=== PATIENT | female | born 1990 | race Caucasian/White ===

== ENCOUNTER 2016-11-17 17:03 | Outpatient (CLI) | payer OTHER ==
[~2016-11-17] VITALS: Ht 167.6 cm; Wt 88.2 kg
[~2016-11-17 17:03] MED LIST: ETONMIS VAGRING
[2016-11-17] MEDS ORDERED: DOCU-94 PO (17:24)
[2016-11-17] MEDS ORDERED: PEDICHW50 PO (17:24)
[2016-11-17] MEDS ORDERED: RANI150T3 PO (17:24)
[2016-11-17 17:27] VITALS: Ht 167.6 cm; Wt 88.2 kg
[2016-11-17] MEDS ORDERED: ACETAMINOPHEN 325 MG TAB PO PRN (17:45)
[2016-11-17 17:56] LABS: URINE APPEARANCE CLEAR (CLEAR); URINE BILIRUBIN NEG (NEG); URINE COLOR YELLOW; URINE NITRITE NEG (NEG); URINE SPECIFIC GRAVITY 1.006 (1.000-1.030); UROBILINOGEN NEG (NEG); ZZUR CULT IF INDIC CLEAN CATCH NO
[2016-11-17 18:08] LABS: BASO % 0.1 %; BASO ABS # 0.01 K/uL (0-0.2); COMPLETE YES; EOS % 0.7 %; IG% 0.3 %; LYMPH % 13.7 %; LYMPH ABS # 1.53 K/uL (1.2-3.4); MEAN CELL VOLUME 93.6 fL (80-100); MEAN CORPUSCULAR HEMOGLOBIN 31.8 pg (25-34); MEAN PLATELET VOLUME 9.7 fL (7.4-10.4); MONO % 6.5 %; NEUT % 78.7 %; PLATELET COUNT 179 K/uL (130-400); RED BLOOD COUNT 3.74 M/uL (4.2-5.4); WHITE BLOOD COUNT 11.15 K/uL (4.8-10.8)
[2016-11-17 18:14] LABS: MANUAL MICROSCOPIC REQUIRED? NO; REVIEW REQ? NO
[2016-11-17 18:35] LABS: ALT/SGPT 17 U/L (12-78); AST/SGOT 12 U/L (15-37); BLOOD UREA NITROGEN 5 mg/dl (7-18); CALCIUM 8.2 mg/dl (8.5-10.1); CARBON DIOXIDE 27 mmol/L (21-32); CHLORIDE 104 mmol/L (98-107); CREATININE 0.44 mg/dl (0.60-1.20); GLUCOSE 94 mg/dl (70-99); POTASSIUM 3.5 mmol/L (3.5-5.1); SODIUM 139 mmol/L (136-145)
[2016-11-17 18:37] LABS: ALB/GLOB RATIO 0.8 (0.9-2); ALKALINE PHOSPHATASE 99 U/L (45-117)
== END 2016-11-17 21:32 | disposition home or self-care (01) ==
LOC: C.LD 17:03 → C.OPB 17:03 → C.LD 17:08 → C.OPB 21:32
PROVIDERS: ATTEND Obstetrics & Gynecology
DX: O26.893 Other specified pregnancy related conditions, third trimester (principal); Z3A.31 31 weeks gestation of pregnancy

== ENCOUNTER 2016-12-20 17:30 | Outpatient (CLI) | payer OTHER ==
[~2016-12-20] VITALS: Ht 167.6 cm; Wt 90.0 kg
[~2016-12-20 17:30] MED LIST changes: +DOCU-94 PO; -ETONMIS VAGRING; +PEDICHW50 PO; +RANI150T3 PO
[2016-12-20] MEDS ORDERED: ACETAMINOPHEN 500 MG TAB PO STA (17:58)
[2016-12-20 18:21] LABS: BASO % 0.1 %; BASO ABS # 0.01 K/uL (0-0.2); EOS % 0.4 %; HEMATOCRIT 35.1 % (37-47); IG% 0.3 %; LYMPH % 6.6 %; LYMPH ABS # 0.67 K/uL (1.2-3.4); MEAN CELL VOLUME 94.4 fL (80-100); MEAN CORPUSCULAR HEMOGLOBIN 32.5 pg (25-34); MEAN PLATELET VOLUME 9.8 fL (7.4-10.4); MONO % 8.5 %; NEUT % 84.1 %; PLATELET COUNT 153 K/uL (130-400); RED BLOOD COUNT 3.72 M/uL (4.2-5.4); WHITE BLOOD COUNT 10.11 K/uL (4.8-10.8)
[2016-12-20 18:23] LABS: COMPLETE YES; MEAN CORPUSCULAR HGB CONC 34.5 g/dl (32-36)
[2016-12-20 18:30] LABS: PROTHROMBIN TIME (PATIENT) 10.3 SECONDS (9.0-12.0)
[2016-12-20 19:02] LABS: ALKALINE PHOSPHATASE 135 U/L (45-117); ALT/SGPT 21 U/L (12-78); AST/SGOT 18 U/L (15-37); BLOOD UREA NITROGEN 4 mg/dl (7-18); BUN/CREATININE RATIO 7.5 (10-20); CALCIUM 8.4 mg/dl (8.5-10.1); CARBON DIOXIDE 27 mmol/L (21-32); CHLORIDE 104 mmol/L (98-107); GLUCOSE 79 mg/dl (70-99); POTASSIUM 3.5 mmol/L (3.5-5.1); SODIUM 139 mmol/L (136-145); URIC ACID 2.8 mg/dl (2.6-7.2)
--- NOTE | 2016-12-20 19:36 | Progress Note ---
Progress Note 26 F P2002 at 36.3 weeks with migraine and stuffed nasal passages. No edema or swelling in hands or feet. No bleeding or any RUQ pain. Urine shows ketones and no protein, Labs all back and wnl. Last 24 Hours Test 12/20/16 18:10 White Blood Count 10.11 K/uL Red Blood Count 3.72 M/uL Hemoglobin 12.1 g/dL Hematocrit 35.1 % Mean Corpuscular Volume 94.4 fL Mean Corpuscular Hemoglobin 32.5 pg Mean Corpuscular Hemoglobin Concent 34.5 g/dl Platelet Count 153 K/uL Mean Platelet Volume 9.8 fL Neutrophils (%) (Auto) 84.1 % Lymphocytes (%) (Auto) 6.6 % Monocytes (%) (Auto) 8.5 % Eosinophils (%) (Auto) 0.4 % Basophils (%) (Auto) 0.1 % Neutrophils # (Auto) 8.50 K/uL Lymphocytes # (Auto) 0.67 K/uL Monocytes # (Auto) 0.86 K/uL Eosinophils # (Auto) 0.04 K/uL Basophils # (Auto) 0.01 K/uL RDW Standard Deviation 44.6 fL RDW Coefficient of Variation 13.0 % Immature Granulocyte % (Auto) 0.3 % Immature Granulocyte # (Auto) 0.03 K/uL Prothrombin Time 10.3 SECONDS Prothromb Time International Ratio 1.0 Activated Partial Thromboplast Time 26.3 SECONDS Partial Thromboplastin Ratio 1.0 Sodium Level 139 mmol/L Potassium Level 3.5 mmol/L Chloride Level 104 mmol/L Carbon Dioxide Level 27 mmol/L Anion Gap 8.0 mmol/L Blood Urea Nitrogen 4 mg/dl Creatinine 0.50 mg/dl Estimated GFR () > 150.0 Estimated GFR (Non- 131.7 BUN/Creatinine Ratio 7.5 Random Glucose 79 mg/dl Uric Acid 2.8 mg/dl Calcium Level 8.4 mg/dl Total Bilirubin 0.5 mg/dl Direct Bilirubin 0.1 mg/dl Aspartate Amino Transf (AST/SGOT) 18 U/L Alanine Aminotransferase (ALT/SGPT) 21 U/L Alkaline Phosphatase 135 U/L Lactate Dehydrogenase 168 U/L Total Protein 6.3 gm/dl Albumin 2.8 gm/dl will discharge home continue Tylenol and anti-histamines Follow up in office nefxt week or if any changes.
[2016-12-20 19:47] VITALS: Ht 167.6 cm; Wt 90.0 kg
[2016-12-21] MEDS ORDERED: PRENTAB26 PO (15:54)
[2016-12-21] MEDS ORDERED: ACET-1256 PO (15:54)
[2016-12-21] MEDS ORDERED: RBTUDL5 PO (15:54)
[2016-12-21] MEDS ORDERED: NF406 PO (18:15)
[2017-01-23] MEDS ORDERED: MTR600X PO (08:14)
== END 2016-12-20 19:23 | disposition home or self-care (01) ==
LOC: C.OPB 17:30 → C.LD 17:30 → C.OPB 19:23
PROVIDERS: ATTEND Obstetrics & Gynecology
DX: O99.89 Other specified diseases and conditions complicating pregnancy, childbirth and the puerperium (principal); G43.909 Migraine, unspecified, not intractable, without status migrainosus; Z3A.36 36 weeks gestation of pregnancy

== ENCOUNTER 2016-12-21 14:49 | Emergency (ER) | payer OTHER ==
[~2016-12-21] VITALS: Ht 167.6 cm; Wt 89.0 kg
[2016-12-21 14:51] VITALS: Ht 167.6 cm; Wt 89.0 kg
[2016-12-21] MEDS ORDERED: SODIUM CHLORIDE 0.9% 1000ML 1,000 ML IV STA (15:16)
[2016-12-21 15:53] LABS: HEMATOCRIT 32.3 % (37-47); MEAN CELL VOLUME 93.6 fL (80-100); MEAN CORPUSCULAR HEMOGLOBIN 32.8 pg (25-34); MEAN PLATELET VOLUME 9.9 fL (7.4-10.4); PLATELET COUNT 155 K/uL (130-400); RED BLOOD COUNT 3.45 M/uL (4.2-5.4); WHITE BLOOD COUNT 8.55 K/uL (4.8-10.8)
[2016-12-21] MEDS ORDERED: PRENTAB26 PO (15:54)
[2016-12-21] MEDS ORDERED: RBTUDL5 PO (15:54)
[2016-12-21] MEDS ORDERED: ACET-1256 PO (15:54)
[2016-12-21 16:03] LABS: PARTIAL THROMBOPLASTIN RATIO 1.1; PROTHROMBIN TIME (PATIENT) 10.7 SECONDS (9.0-12.0)
[2016-12-21 16:17] LABS: ALT/SGPT 21 U/L (12-78); BLOOD UREA NITROGEN 4 mg/dl (7-18); BUN/CREATININE RATIO 9.1 (10-20); CALCIUM 8.1 mg/dl (8.5-10.1); CARBON DIOXIDE 23 mmol/L (21-32); CHLORIDE 106 mmol/L (98-107); CREATININE 0.45 mg/dl (0.60-1.20); GLUCOSE 96 mg/dl (70-99); POTASSIUM 3.3 mmol/L (3.5-5.1); SODIUM 139 mmol/L (136-145)
[2016-12-21 16:20] LABS: ALKALINE PHOSPHATASE 136 U/L (45-117); AST/SGOT 20 U/L (15-37)
[2016-12-21 16:23] LABS: BASO % 0.1 %; BASO ABS # 0.01 K/uL (0-0.2); COMPLETE YES; EOS % 0.6 %; IG% 0.2 %; LYMPH % 10.6 %; LYMPH ABS # 0.91 K/uL (1.2-3.4); MONO % 12.4 %; NEUT % 76.1 %
[2016-12-21 17:20] LABS: INFLUENZA B PCR Neg for Influ B (NEG)
[2016-12-21 17:22] LABS: INFLUENZA A PCR POS for Influ A (NEG)
--- NOTE | 2016-12-21 17:23 | DIAGNOSTIC IMAGING REPORT ---
BILATERAL LOWER EXTREMITY VENOUS DOPPLER CLINICAL HISTORY: Leg swelling. Shortness of breath. Fever. . COMPARISON STUDY: Bilateral lower extremity venous Doppler October 25, 2016. TECHNIQUE: Sonography of the deep venous system of the bilateral lower extremities was performed. Compression and augmentation were evaluated. FINDINGS: The bilateral common femoral, superficial femoral and popliteal veins were compressible. Augmentation was normal. Flow was shown within the deep calf vessels. IMPRESSION: No evidence of deep venous thrombus within the bilateral lower extremities. Electronically signed by: Leonard Greene M.D. 12/21/2016 5:21 PM Dictated Date/Time: 12/21/2016 5:21 PM
[2016-12-21] MEDS ORDERED: OSELTAMIVIR PHOSPHATE 75 MG CAP PO STA (17:40)
--- NOTE | 2016-12-21 18:10 | DIAGNOSTIC IMAGING REPORT ---
CHEST 2 VIEWS ROUTINE CLINICAL HISTORY: Fever. Cough. 37 weeks . COMPARISON STUDY: Chest CT March 26, 2015. TECHNIQUE: The abdomen and pelvis were triple shielded due to . PA and lateral chest radiographs were obtained. FINDINGS: Lung volumes are normal. Lungs are clear. There is no evidence of pulmonary edema. Cardiac size is normal. Mediastinal contours are normal. IMPRESSION: No acute cardiopulmonary findings. Electronically signed by: Leonard Greene M.D. 12/21/2016 6:08 PM Dictated Date/Time: 12/21/2016 6:07 PM
[2016-12-21] MEDS ORDERED: NF406 PO (18:15)
[2016-12-21 19:00] VITALS: BP 124/68; PULSE 88; TEMP 36.5; O2SAT 100
--- NOTE | 2016-12-21 22:25 | EMERGENCY ROOM VISIT NOTE ---
History Report prepared by Doreenibzohra: Veda Hines Under the Supervision of: Dr. Mitch Schneider M.D. First contact with patient: 15:02 Chief Complaint: SHORTNESS OF BREATH Stated Complaint: SOB, COUGH, FEVER, CONGESTION Nursing Triage Summary: pt here with increased sob, cough and fever. pt was seen here and upstairs yesterday with no answer. History of Present Illness The patient is a 26 year old female who presents to the Emergency Room with complaints of worsening shortness of breath that started yesterday. She reports yesterday morning while at work, she started to experience sinus congestion and pressure, a productive cough and a migraine headache. She checked her heart rate and it was 103 bpm. She denies any fevers yesterday, but states she woke with a fever this morning. Her home thermometer registered 101.6 degrees, so she took Tylenol which helped provide some relief. She went back to sleep for a little bit, then awoke with a fever again so she took more Tylenol. She is currently 36 weeks with her 3rd so she called her MANAGER SHIFT's office and they referred her to the ED for further evaluation. She complains of a feeling of "soreness" in her chest when she coughs, but denies any acute chest pain. She admits to some increased bilateral swelling to her legs, but denies any current pain in her legs. The patient denies any history of preeclampsia and states her blood pressure was checked yesterday in the OB floor for monitoring and everything was found to be unremarkable. Her urine did not show any proteins. She was discharged without any treatment. She denies any increased abnormal vaginal discharge or bleeding. She denies any personal history of PE or DVT, but reports her Mother had a clotting disease that she, the patient, has been checked for, and was found to be negative. The patient is a non-smoker and denies regularly being around cigarette smokers. Source of History: patient Onset: yesterday Position: chest Timing: worsening Modifying Factors (Relieving): tylenol Associated Symptoms: + cough, + fevers, + headache, No chest pain Review of Systems See HPI for pertinent positives & negatives. A total of 10 systems reviewed and were otherwise negative. Past Medical & Surgical Medical Problems: (1) H/O migraine during Social History Smoking Status: Never Smoker Smokeless Tobacco Use: No Alcohol Use: occasionally Drug Use: none Marital Status: Housing Status: lives with family Occupation Status: employed Current/Historical Medications Scheduled Docusate Sodium (Colace), 3 CAP PO DAILY Multivit/Min/Iron/Fol Ac/Pren ( Vitamin), 1 TAB PO QPM Oseltamivir Phosphate (Tamiflu), 1 CAP PO BID Ranitidine Hcl (Zantac), 150 MG PO DAILY Scheduled PRN Acetaminophen (Tylenol), 1,000 MG PO Q8 PRN for Pain Guaifenesin (Robitussin), 10 ML PO BID PRN for Cough Allergies Coded Allergies: Penicillins (Verified Allergy, Severe, ANAPHYLAXIS, 12/21/16) Physical Exam Vital Signs Date Time Temp Pulse Resp B/P Pulse Ox O2 Delivery O2 Flow Rate FiO2 12/21/16 19:00 36.5 88 26 124/68 100 Room Air 12/21/16 18:05 91 18 112/63 97 Room Air 12/21/16 16:47 94 12/21/16 14:51 36.9 122 20 106/52 96 Room Air Physical Exam Constitutional: Vital signs reviewed. Eyes: Pupils are equal round reactive to light. Conjunctiva are noninjected. ENT: Pharynx is clear without erythema or exudate. No sinus tenderness, significant nasal congestion. Mucous membranes are moist. Neck supple without meningeal signs. Respiratory: Clear to auscultation bilaterally. Breath sounds are equal bilaterally. No rales or wheezing. Cardiovascular: Tachycardic heart rate of 103, regular rhythm. GI: Gravid abdomen, non-tender. Bowel sounds are present. Musculoskeletal: No peripheral edema. No lower extremity tenderness. Reproducible sternal tenderness on palpation. Integumentary: No cyanosis. Neurological: The patient is awake and alert. No focal deficits. Psychiatric: Normal affect. Medical Decision & Procedures ER Provider Diagnostic Interpretation: This Ultrasound was reviewed and interpreted by the radiologist and reviewed by myself. BILATERAL LOWER EXTREMITY VENOUS DOPPLER CLINICAL HISTORY: Leg swelling. Shortness of breath. Fever. . COMPARISON STUDY: Bilateral lower extremity venous Doppler October 25, 2016. TECHNIQUE: Sonography of the deep venous system of the bilateral lower extremities was performed. Compression and augmentation were evaluated. FINDINGS: The bilateral common femoral, superficial femoral and popliteal veins were compressible. Augmentation was normal. Flow was shown within the deep calf vessels. IMPRESSION: No evidence of deep venous thrombus within the bilateral lower extremities. Electronically signed by: Leonard Greene M.D. 12/21/2016 5:21 PM This X-Ray was reviewed and interpreted by myself and the radiologist. CHEST 2 VIEWS ROUTINE CLINICAL HISTORY: Fever. Cough. 37 weeks . COMPARISON STUDY: Chest CT March 26, 2015. TECHNIQUE: The abdomen and pelvis were triple shielded due to . PA and lateral chest radiographs were obtained. FINDINGS: Lung volumes are normal. Lungs are clear. There is no evidence of pulmonary edema. Cardiac size is normal. Mediastinal contours are normal. IMPRESSION: No acute cardiopulmonary findings. Electronically signed by: Leonard Greene M.D. 12/21/2016 6:08 PM Laboratory Results 12/21/16 15:35 Red Blood Count 3.45, Mean Corpuscular Volume 93.6, Mean Corpuscular Hemoglobin 32.8, Mean Corpuscular Hemoglobin Concent 35.0, Mean Platelet Volume 9.9, Neutrophils (%) (Auto) 76.1, Lymphocytes (%) (Auto) 10.6, Monocytes (%) (Auto) 12.4, Eosinophils (%) (Auto) 0.6, Basophils (%) (Auto) 0.1, Neutrophils # (Auto ) 6.50, Lymphocytes # (Auto) 0.91, Monocytes # (Auto) 1.06, Eosinophils # (Auto ) 0.05, Basophils # (Auto) 0.01 12/21/16 15:35 Test 12/21/16 15:35 12/21/16 15:46 12/21/16 16:40 White Blood Count 8.55 K/uL (4.8-10.8) Red Blood Count 3.45 M/uL (4.2-5.4) Hemoglobin 11.3 g/dL (12.0-16.0) Hematocrit 32.3 % (37-47) Mean Corpuscular Volume 93.6 fL (80-100) Mean Corpuscular Hemoglobin 32.8 pg (25-34) Mean Corpuscular Hemoglobin Concent 35.0 g/dl (32-36) Platelet Count 155 K/uL (130-400) Mean Platelet Volume 9.9 fL (7.4-10.4) Neutrophils (%) (Auto) 76.1 % Lymphocytes (%) (Auto) 10.6 % Monocytes (%) (Auto) 12.4 % Eosinophils (%) (Auto) 0.6 % Basophils (%) (Auto) 0.1 % Neutrophils # (Auto) 6.50 K/uL (1.4-6.5) Lymphocytes # (Auto) 0.91 K/uL (1.2-3.4) Monocytes # (Auto) 1.06 K/uL (0.11-0.59) Eosinophils # (Auto) 0.05 K/uL (0-0.5) Basophils # (Auto) 0.01 K/uL (0-0.2) RDW Standard Deviation 43.9 fL (36.4-46.3) RDW Coefficient of Variation 13.0 % (11.5-14.5) Immature Granulocyte % (Auto) 0.2 % Immature Granulocyte # (Auto) 0.02 K/uL (0.00-0.02) Prothrombin Time 10.7 SECONDS (9.0-12.0) Prothromb Time International Ratio 1.0 (0.9-1.1) Activated Partial Thromboplast Time 29.0 SECONDS (21.0-31.0) Partial Thromboplastin Ratio 1.1 Anion Gap 10.0 mmol/L (3-11) Est Creatinine Clear Calc Drug Dose 209.1 ml/min Estimated GFR () > 150.0 Estimated GFR (Non- 136.4 BUN/Creatinine Ratio 9.1 (10-20) Calcium Level 8.1 mg/dl (8.5-10.1) Total Bilirubin 0.5 mg/dl (0.2-1) Direct Bilirubin 0.1 mg/dl (0-0.2) Aspartate Amino Transf (AST/SGOT) 20 U/L (15-37) Alanine Aminotransferase (ALT/SGPT) 21 U/L (12-78) Alkaline Phosphatase 136 U/L (45-117) Total Protein 6.0 gm/dl (6.4-8.2) Albumin 2.5 gm/dl (3.4-5.0) Bedside D-Dimer > 450 ng/mlFEU (0-450) Bedside Troponin I 0.000 ng/ml (0-0.045) Influenza Type A (RT-PCR) POS for Influ A (NEG) Influenza Type B (RT-PCR) Neg for Influ B (NEG) Laboratory results as reviewed by me. Medications Administered Medications (Trade) Dose Ordered Sig/Toy Route Start Time Stop Time Status Last Admin Dose Admin Sodium Chloride (Nss 1000ml) 1,000 ml @ 999 mls/hr Q1H1M STAT IV 12/21/16 15:16 12/21/16 16:16 DC 12/21/16 18:03 999 MLS/HR Oseltamivir Phosphate (Tamiflu Cap) 75 mg NOW STAT PO 12/21/16 17:40 12/21/16 17:41 DC 12/21/16 18:01 75 MG ECG Indication: SOB/dyspnea Rate (beats per minute): 94 Rhythm: normal sinus (normal sinus rhythm) Findings: no acute ischemic change, no ectopy ED Course 1506: The patient was evaluated in room A10. A complete history and physical exam was performed. 1516: NSS 1000 ml @ 999 mls/hr IV. 1648: I checked the patients lab work. Her D-dimer is 1369. 1729: I reevaluated the patient. She is resting comfortably. 1732: I discussed the patients case [facility]. She is agreeable with the patient undergoing a chest X-Ray as well as treatment with Tamiflu. 1740: Tamiflu Cap 7 mg PO. 1745: I reevaluated the patient. She states she is feeling better. I let her know the results and recommendations from MANAGER SHIFT and she is in agreement. 1813: I reevaluated the patient. I discussed her X-Ray results and she states she feels well and is ready to go home. I discussed her discharge instructions and she verbalized complete understanding and agreement. Medical Decision This is a 26-year-old female who presents with fever, sinus congestion, cough and shortness of breath. Differential diagnosis includes influenza, pneumonia, bronchitis, sinusitis, pulmonary embolism. I did perform a limited focused review of portions of the patient's old chart on the electronic medical record. The patient was seen upstairs yesterday on the OB floor for a migraine headache and sinus issues. She is 36 weeks and her blood work was unremarkable yesterday. I did evaluate the patient as noted above. She is 36.4 weeks . She is presenting with flulike symptoms since yesterday. She also is tachycardic with some shortness of breath. IV access was established. The patient was placed on a continuous surveillance monitor. I did treat her with normal saline IV. I did order and personally review the patient's 12-lead EKG as described above. She does not have any signs of pneumonia. I did order and review the patient's blood work as noted in the electronic medical record. D-dimer is elevated but not significantly more elevated than would be expected in third trimester . I did order Doppler ultrasound of her lower extremities. I did review the images myself as well as the radiology report as described above. There is no evidence of DVT. Rapid flu testing is positive. I did discuss the case with obstetrics who agreed with me that the likelihood of PE is very low and that she does not warrant a CT scan of the chest. They also agree that she should be treated with Tamiflu as she is close to her delivery date. After discussion with the patient I did order a chest x-ray which did not show any signs of pneumonia. The patient was treated with Tamiflu and discharged with a prescription for Tamiflu. She will follow up closely with her doctor. Consults Time Called: 1728 Consulting Physician: Mohan Mccoy MANAGER SHIFT Returned Call: 1732 I discussed the patients case with Mohan Mccoy MANAGER SHIFT. She is agreeable with the patient undergoing a chest X-Ray as well as treatment with Tamiflu. Impression Primary Impression: Influenza A Additional Impression: Third trimester Scribe Attestation The scribe's documentation has been prepared under my direct and personally reviewed by me in its entirety. I confirm that the note above accurately reflects all work, treatment, procedures, and medical decision making performed by me. Departure Information Dispostion Home / Self-Care Prescriptions Oseltamivir Phosphate (Tamiflu) 75 Mg Cap 1 CAP PO BID for 5 Days, #9 CAP Prov: Mitch Schneider M.D. 12/21/16 Referrals Faith Dixon M.D. (PCP) Patient Instructions ED Flu, [facility] Additional Instructions You have been examined and treated today on an emergency basis only. This is not a substitute for, or an effort to provide, complete comprehensive medical care. It is impossible to recognize and treat all injuries or illnesses in a single emergency department visit. It is therefore important that you follow up closely with your physician and hospital plan administrator. Call as soon as possible for an appointment. Return for worsening symptoms or if you develop vomiting, severe headaches, worsening chest pain or any other concerning symptoms. Problem Qualifiers
== END 2016-12-21 19:10 | disposition home or self-care (01) ==
LOC: C.EDB 14:50 → C.EDA 19:10
DX: O99.513 Diseases of the respiratory system complicating pregnancy, third trimester (principal); J11.1 Influenza due to unidentified influenza virus with other respiratory manifestations; R06.02 Shortness of breath; Z3A.36 36 weeks gestation of pregnancy; Z79.899 Other long term (current) drug therapy

== ENCOUNTER 2017-01-17 03:00 | Inpatient (IN) | payer OTHER ==
[~2017-01-17] VITALS: Ht 167.6 cm; Wt 93.6 kg
[~2017-01-17 03:00] MED LIST changes: +ACET-1256 PO; -PEDICHW50 PO; +PRENTAB26 PO; +RBTUDL5 PO
[2017-01-21] MEDS ORDERED: LACTATED RINGER'S 1000ML 1,000 ML IV SCH (10:27)
[2017-01-21] MEDS ORDERED: MISOPROSTOLTAB 50 MCG TAB PO ONE ×2 (10:30→16:00)
--- NOTE | 2017-01-21 11:12 | HISTORY & PHYSICAL EXAMINATION ---
DATE OF ADMISSION: 01/21/2017 HISTORY OF PRESENT ILLNESS: The patient is a 27-year-old G3, P2, due date 01/14/2017, making her 41 weeks today. The patient is here for induction of labor for prolonged gestation. On arrival to labor and delivery, the patient has no shortness of breath, no chills, no fever. heart rate is category 1. Bedside ultrasound shows cephalic presentation. COURSE: Unremarkable. LABORATORY DATA: Blood type O positive, antibody negative, rubella immune, GBS negative. PAST MEDICAL HISTORY: 1. The patient has history of migraines. 2. Hypothyroidism. 3. Lumbar herniated disc. PAST SURGICAL HISTORY: The patient has had dental surgery. ALLERGIES: THE PATIENT IS ALLERGIC TO PENICILLIN. SOCIAL HISTORY: The patient is . Denies drug, tobacco or alcohol use. FAMILY HISTORY: Noncontributory. PHYSICAL EXAMINATION: GENERAL: Well-developed, well-nourished white female in no acute distress. HEART: S1, S2, regular rhythm and rate. LUNGS: Clear to auscultation bilaterally. ABDOMEN: Gravid. Bedside ultrasound shows cephalic presentation. PELVIC: The patient is fingertip, 50% effaced, and -2. ASSESSMENT AND PLAN: A 27-year-old G3, P2, at 41 weeks' gestation, here for induction of labor for prolonged gestation. The patient has been admitted, induction will be started. [facility] [place]
[2017-01-21 11:19] LABS: HEMATOCRIT 35.5 % (37-47); MEAN CELL VOLUME 92.4 fL (80-100); MEAN CORPUSCULAR HGB CONC 34.6 g/dl (32-36); MEAN PLATELET VOLUME 9.9 fL (7.4-10.4); PLATELET COUNT 183 K/uL (130-400); RED BLOOD COUNT 3.84 M/uL (4.2-5.4); WHITE BLOOD COUNT 10.56 K/uL (4.8-10.8)
[2017-01-21 14:41] VITALS: Ht 167.6 cm; Wt 93.6 kg
[2017-01-21] MEDS ORDERED: LACTATED RINGER'S 1000ML 500 ML IV PRN ×2 (21:13→23:36)
[2017-01-21] MEDS ORDERED: OXYTOCIN 30 UNITS/500ML NSS IV PRN (21:15)
[2017-01-21] MEDS: LACTATED RINGER'S 1000ML 1,000 ML IV PRN ×2 (21:41→23:18)
[2017-01-21] MEDS ORDERED: BUPIVACAINE 0.25% 30 ML VIAL ONE (21:51)
[2017-01-21] MEDS ORDERED: EpHEDrine SULFATE INJ 50 MG/ML AMP ONE (21:51)
[2017-01-21] MEDS ORDERED: FENTANYL CITRATE INJ 50 MCG/1 ML 2 ML VIAL ONE (21:52)
[2017-01-21] MEDS ORDERED: FENTANYL 2MCG/ML ROPIV 1.25MG/ML 100ML BAG EPI ONE (21:52)
[2017-01-21] MEDS ORDERED: NALOXONE HCL INJ 1 MG in SODIUM CHLORIDE 0.9% 1000ML 1,000 ML IV PRN (23:36)
[2017-01-21] MEDS ORDERED: FENTANYL 2MCG/ML ROPIV 1.25MG/ML 100ML BAG EPI PRN (23:45)
[2017-01-21] MEDS ORDERED: NALBUPHINE HCL INJ 10 MG/ML AMP IV PRN (23:45)
[2017-01-21] MEDS ORDERED: DiphenhydrAMINE HCL 50 MG/ML VIAL IV PRN (23:45)
[2017-01-21] MEDS ORDERED: NALOXONE HCL INJ 0.4 MG/1 ML VIAL/CARP IV PRN (23:45)
[2017-01-21] MEDS ORDERED: EpHEDrine SULFATE INJ 50 MG/ML AMP IV PRN (23:45)
[2017-01-22] MEDS ORDERED: BENZOCAINE 20% AER SPR 82.5 GM CAN EXT PRN (02:45)
[2017-01-22] MEDS ORDERED: ACETAMINOPHEN 325 MG TAB PO PRN (02:45)
[2017-01-22] MEDS ORDERED: LANOLIN OINT EXT PRN ×2 (02:45)
[2017-01-22] MEDS ORDERED: ACETAMINOPHEN/CODEINE 300/30MG TAB PO PRN (02:45)
[2017-01-22] MEDS ORDERED: HYDROCORTISONE ACETATE 25 MG SUPP PR PRN (02:45)
[2017-01-22] MEDS ORDERED: OXYCODONE/ACETAMINOPHEN 5-325 TAB PO PRN (02:45)
[2017-01-22] MEDS ORDERED: SUPERCREAM 0.870 % 15GM JAR EXT PRN (02:45)
[2017-01-22] MEDS ORDERED: OXYTOCIN 30 UNITS/500ML NSS IV PRN (02:45)
--- NOTE | 2017-01-22 03:06 | DELIVERY SUMMARY ---
DATE OF OPERATION: 01/21/2017 The patient delivered a live infant, female, in right compound hand presentation with loose nuchal cord which was easily reduced. Infant was delivered, placed on mother's abdomen, cord clamped and cut. Placenta was spontaneously delivered. Inspection of the placenta shows a 3-vessel cord. Inspection of the perineum showed a midline second-degree laceration with a periurethral tear which I repaired in layers with 4-0 and 3-0 Vicryl respectively. Rectal exam post repair shows good sphincter tone. There was good hemostasis at the end of the repair. Estimated blood loss was 400 mL. Infant's weight is pending. Apgars 9 and 10. Baby and mother are doing well in recovery. All instruments are removed from the vagina and accounted for x2 including sponges and needles. I attest to the content of the Intraoperative Record and any orders documented therein. Any exceptio ns are noted below.
[2017-01-22 05:00] VITALS: BP 106/63; PULSE 90; TEMP 36.7
[2017-01-22 07:40] VITALS: BP 115/69; PULSE 73; TEMP 36.8; O2SAT 97
[2017-01-22] MEDS: DOCUSATE SODIUM 100 MG CAP PO SCH ×2 (08:20→19:49)
[2017-01-22] MEDS: PRENATAL VITAMIN TAB PO SCH (08:20)
[2017-01-22] MEDS: FERROUS SULFATE 325 MG TAB PO SCH (08:20)
[2017-01-22] MEDS: ACETAMINOPHEN/CODEINE 300/30MG TAB PO PRN ×2 (08:21→23:51)
--- NOTE | 2017-01-22 09:27 | Anesthesia Procedure Note ---
Anesthesia Epidural Removal Nt Date & Time Jan 22, 2017 at 09:27 Vital Signs Pain Intensity: 0.0 Vital Signs Past 12 Hours Date Time Temp Pulse Resp B/P Pulse Ox O2 Delivery O2 Flow Rate FiO2 01/22/17 07:40 36.8 73 15 115/69 97 Room Air 01/22/17 07:40 97 Room Air 01/22/17 05:00 36.7 90 20 106/63 Room Air 01/22/17 05:00 Room Air Notes Mental Status: alert / awake / arousable, participated in evaluation Nausea / Vomiting: adequately controlled Pain: adequately controlled Airway Patency, RR, SpO2: stable & adequate BP & HR: stable & adequate Hydration State: stable & adequate Neuraxial Anesthesia: was administered, sensory block is resolved Anesthetic Complications: no major complications apparent, pt satisfied with anesthetic care Epidural: removed without complications, with tip intact
[2017-01-22 12:45] VITALS: BP 116/71; PULSE 79; TEMP 36.8; O2SAT 98
[2017-01-22] MEDS: IBUPROFEN 600 MG TAB PO PRN ×2 (13:03→17:04)
[2017-01-22 16:50] VITALS: BP 119/69; PULSE 70; TEMP 36.7
[2017-01-22 20:10] VITALS: BP 122/73; PULSE 81; TEMP 37
[2017-01-22 23:40] VITALS: BP 110/65; PULSE 68; TEMP 36.9
[2017-01-23 06:41] LABS: HEMATOCRIT 37.6 % (37-47)
[2017-01-23 08:00] VITALS: BP 121/73; PULSE 64; TEMP 36.8
[2017-01-23] MEDS ORDERED: MTR600X PO (08:14)
--- NOTE | 2017-01-23 08:15 | Discharge Instructions ---
Discharge Instructions Date of Service Jan 23, 2017. Admission Reason for Admission: Induction Discharge Discharge Diagnosis / Problem: term deliverd Discharge Goals Goal(s): Continuing OB care Activity Recommendations Activity Limitations: as noted below Lifting Limitations: no more than 10 pounds Exercise/Sports Limitations: as tolerated, gradually increase as tolerated May Resume Sexual Activity: after follow-up appointment Shower/Bathe: no limitations Driving or Machine Use: resume 3 days after discharge . Current Hospital Diet Patient's current hospital diet: Regular OB Diet Discharge Diet Recommended Diet: Regular OB Diet Fluid Restriction: 2000 ml (8 cups) Pending Studies Studies pending at discharge: no Medical Emergencies . Who to Call and When: Medical Emergencies: If at any time you feel your situation is an emergency, please call 911 immediately. . Non-Emergent Contact Non-Emergency issues call your: Primary Care Provider . . "Provider Documentation" section prepared by Temo Fernandez. VTE Core Measure Inpt VTE Proph given/why not?: Treatment not indicated
--- NOTE | 2017-01-23 08:46 | OB/GYN Progress Note ---
IT SERVICE MANAGER Progress Note Date of Service Jan 23, 2017. Subjective conversation w/ patient, physical exam Ambulation: ambulating normally Voiding: no voiding problems Passing Gas: Yes Diet Tolerance: Regular Diet Lochia: Small Feeding Type: Breast Feeding Objective Vital Signs Date Time Temp Pulse Resp B/P Pulse Ox O2 Delivery O2 Flow Rate FiO2 01/23/17 08:00 36.8 64 18 121/73 Room Air 01/22/17 23:40 36.9 68 18 110/65 Room Air 01/22/17 23:40 Room Air 01/22/17 20:10 37.0 81 18 122/73 Room Air 01/22/17 16:50 Room Air 01/22/17 16:50 36.7 70 18 119/69 Room Air 01/22/17 12:45 36.8 79 16 116/71 98 Room Air Physical Exam General Appearance: WELL-APPEARING, NO APPARENT DISTRESS Abdomen: non tender, soft Fundus: Firm Extremities: non-tender, normal inspection Laboratory Results Last 24 Hours Test 01/23/17 05:57 Hemoglobin 12.5 g/dL Hematocrit 37.6 % Assessment and Plan Post- Day Number: 2 Continue Routine Care: discharged
[2017-01-23] MEDS: FERROUS SULFATE 325 MG TAB PO SCH (09:02)
[2017-01-23] MEDS: PRENATAL VITAMIN TAB PO SCH (09:02)
[2017-01-23] MEDS: DOCUSATE SODIUM 100 MG CAP PO SCH (09:02)
[2017-01-23] MEDS: ACETAMINOPHEN/CODEINE 300/30MG TAB PO PRN (09:16)
[2017-01-23] MEDS: IBUPROFEN 600 MG TAB PO PRN (09:16)
[2017-01-23 13:15] VITALS: BP_DIAS 73; PULSE 64; TEMP 36.8
[2017-01-23] MEDS ORDERED: BISACODYL 5 MG TABEC PO SCH (20:00)
[2017-01-24] MEDS ORDERED: BISACODYL 10 MG SUPP PR PRN (07:00)
== END 2017-01-23 13:35 | disposition home or self-care (01) | DRG 775 ==
LOC: C.LD 01-21 07:58 → C.OBG 01-22 04:53
PROVIDERS: ADMIT Obstetrics & Gynecology; ATTEND Obstetrics & Gynecology
PROC: 3E0P7GC Introduction of Other Therapeutic Substance into Female Reproductive, Via Natural or Artificial Opening (ICD-10-PCS; principal; 2017-01-22)
PROC: 0KQM0ZZ Repair Perineum Muscle, Open Approach (ICD-10-PCS; principal; 2017-01-22)
PROC: 3E033VJ Introduction of Other Hormone into Peripheral Vein, Percutaneous Approach (ICD-10-PCS; principal; 2017-01-22)
PROC: 10907ZC Drainage of Amniotic Fluid, Therapeutic from Products of Conception, Via Natural or Artificial Opening (ICD-10-PCS; principal; 2017-01-22)
PROC: 0UQMXZZ Repair Vulva, External Approach (ICD-10-PCS; principal; 2017-01-22)
PROC: 10E0XZZ Delivery of Products of Conception, External Approach (ICD-10-PCS; principal; 2017-01-22)
DX: O48.0 Post-term pregnancy (principal); Z37.0 Single live birth; O99.62 Diseases of the digestive system complicating childbirth; K21.9 Gastro-esophageal reflux disease without esophagitis; O69.81X0 Labor and delivery complicated by cord around neck, without compression, not applicable or unspecified; O32.6XX0 Maternal care for compound presentation, not applicable or unspecified; O70.1 Second degree perineal laceration during delivery; O71.82 Other specified trauma to perineum and vulva; Z3A.41 41 weeks gestation of pregnancy

== ENCOUNTER 2018-07-06 20:41 | Emergency (ER) | payer OTHER ==
[~2018-07-06] VITALS: Ht 167.6 cm; Wt 87.4 kg
[~2018-07-06 20:41] MED LIST changes: -ACET-1256 PO; +MTR600X PO; -RBTUDL5 PO
[2018-07-06 20:43] VITALS: TEMP 36.6; Ht 167.6 cm; Wt 87.4 kg
[2018-07-06 21:11] VITALS: O2SAT 97
[2018-07-06 21:30] LABS: BASO % 0.3 %; BASO ABS # 0.02 K/uL (0-0.2); EOS % 1.6 %; EOS ABS # 0.12 K/uL (0-0.5); HEMATOCRIT 38.9 % (37-47); HEMOGLOBIN 13.2 g/dL (12.0-16.0); IG# 0.01 K/uL (0.00-0.02); LYMPH % 43.4 %; LYMPH ABS # 3.26 K/uL (1.2-3.4); MEAN CELL VOLUME 90.3 fL (80-100); MEAN CORPUSCULAR HEMOGLOBIN 30.6 pg (25-34); MEAN CORPUSCULAR HGB CONC 33.9 g/dl (32-36); MONO % 10.5 %; MONO ABS # 0.79 K/uL (0.11-0.59); NEUT % 44.1 %; NEUT ABS # 3.32 K/uL (1.4-6.5); PLATELET COUNT 236 K/uL (130-400); RED CELL DISTRIBUTION WIDTH CV 12.1 % (11.5-14.5); RED CELL DISTRIBUTION WIDTH SD 40.2 fL (36.4-46.3); WHITE BLOOD COUNT 7.52 K/uL (4.8-10.8)
[2018-07-06 21:54] LABS: BLOOD UREA NITROGEN 12 mg/dl (7-18); CALCIUM 8.3 mg/dl (8.5-10.1); CARBON DIOXIDE 27 mmol/L (21-32); CREATININE 0.68 mg/dl (0.60-1.20); GLUCOSE 91 mg/dl (70-99); POTASSIUM 3.5 mmol/L (3.5-5.1); SODIUM 141 mmol/L (136-145)
[2018-07-06] MEDS ORDERED: AMT10 PO (21:58)
[2018-07-06] MEDS ORDERED: MULT1CHW4 PO (21:58)
[2018-07-06] MEDS ORDERED: MELA1TAB54 PO (21:58)
[2018-07-06] MEDS ORDERED: ONDA4TAB9 PO (21:58)
[2018-07-06] MEDS ORDERED: SUMA25TA12 PO (21:58)
[2018-07-06] MEDS ORDERED: NUVVR IU (21:58)
[2018-07-06] MEDS ORDERED: FIBE1CHW8 PO (21:58)
[2018-07-06] MEDS ORDERED: NRN100 PO (21:58)
--- NOTE | 2018-07-06 22:22 | EMERGENCY ROOM VISIT NOTE ---
History Report prepared by Noelle: Ainsley Bhandari Under the Supervision of: Dr. Naga Delgadillo M.D. First contact with patient: 20:50 Chief Complaint: LEG PAIN,LEG INJURY Stated Complaint: POSSIBLE BLOODCLOT LEFT LEG History of Present Illness The patient is a 28 year old female who presents to the Emergency Room with complaints of constant leg pain yesterday afternoon. The patient states that she was playing gold yesterday when a 4 inch vein instantly popped out of her skin on her left leg. She states that it was painful and bruised by this morning. She currently rates her pain as a 3/10 in severity. She reports that she is concerned because her family has a history of blood clots. The patient complains of shortness of breath. The patient denies falls, chance of , and use of oral contraceptives. The patient notes that she has a NuvaRing in. Source of History: patient Onset: yesterday afternoon Position: leg (left) Symptom Intensity: 3/10 Timing: constant Associated Symptoms: + SOB Note: The patient denies falls, chance of , and use of oral contraceptives Review of Systems See HPI for pertinent positives and negatives. A total of ten systems were reviewed and were otherwise negative. Past Medical & Surgical Medical Problems: (1) H/O migraine during (2) Family History DVT FHx: pulmonary embolism Social History Smoking Status: Never Smoker Alcohol Use: occasionally Drug Use: none Marital Status: Housing Status: lives with family Occupation Status: employed Current/Historical Medications Scheduled Amitriptyline HCl (Amitriptyline HCl), 10 MG PO HS Etonogestrel/Ethinyl Estradiol (Nuvaring), 1 EA IU UD Fiber (Fiber Adult Gummies 2 gm), 1 TAB PO DAILY Gabapentin (Gabapentin), 100 MG PO TID Melatonin (Melatonin), 5 MG PO HS Multiple Vitamins W/ Minerals (Adult Gummy), 1 TAB PO DAILY Scheduled PRN Ondansetron (Ondansetron HCl), 4 MG PO UD PRN for Migraine Sumatriptan Succinate (Imitrex), 25 MG PO UD PRN for Migraine Allergies Coded Allergies: Penicillins (Verified Allergy, Severe, ANAPHYLAXIS, 12/21/16) Physical Exam Vital Signs Date Time Temp Pulse Resp B/P (MAP) Pulse Ox O2 Delivery O2 Flow Rate FiO2 07/06/18 23:20 76 18 114/78 98 8/26/18 22:41 74 16 112/73 96 Room Air 07/06/18 21:11 97 Room Air 07/06/18 21:11 97 Room Air 07/06/18 20:43 36.6 78 18 129/83 97 Room Air Physical Exam Physical Exam GENERAL: She is oriented to person, place, and time. She appears well- developed and well-nourished. She does not appear distressed. HENT: Exam performed. Head: Normocephalic and atraumatic. Right Ear: External ear normal. No mastoid tenderness. Left Ear: External ear normal. No mastoid tenderness. Mouth/Throat: The oropharynx is clear and moist. No trismus in the jaw. No dental abscesses or uvula swelling. No oropharyngeal exudate or tonsillar abscesses. EYES: Conjunctivae and EOM are normal. Pupils are equal, round, and reactive to light. Right eye exhibits no discharge. Left eye exhibits no discharge. No scleral icterus. NECK: Normal range of motion. Neck supple. No JVD present. No spinous process tenderness present. No carotid bruit present. No rigidity. No tracheal deviation and normal range of motion present. No Brudzinski's sign and no Kernig 's sign noted. CV: Normal rate, regular rhythm, normal heart sounds and intact distal pulses. There is no peripheral edema. Palpable radial pulses bue. PULM/CHEST: Effort normal and breath sounds normal. No respiratory distress. No stridor. She has no wheezes. She has no rales. Chest Wall: She exhibits no tenderness. ABD: The abdomen is soft. Bowel sounds are normal. She has no distension. No mass is present. There is no tenderness. There is no rebound, no guarding, no Estrella's sign and no tenderness at McBurney's point. Rovsig negative MUSC/SKEL: Normal range of motion. There is no peripheral edema or deformity. Bruising over the lateral left lower extremity. Pain on palpation of the left popliteal. Palpable DP and PT pulses on bilateral lower extremities. Soft compartments bilateral lower extremities. LYMPH: No cervical adenopathy. NEURO: She is alert and oriented to person, place, and time. She has normal strength. No cranial nerve deficit or sensory deficit. Coordination and gait normal. GCS eye subscore is 4. GCS verbal subscore is 5. GCS motor subscore is 6. Cerebellar tests wnl. SKIN: Skin is warm and dry. She is not diaphoretic. PSYCH: She has a normal mood and affect. Behavior is normal. Judgment and thought content normal. Medical Decision & Procedures ER Provider Diagnostic Interpretation: Radiology results as stated below per my review and radiologist interpretation: CHEST 2 VIEWS ROUTINE HISTORY: 28 years-old Female sob acute shortness of breath COMPARISON: Chest radiograph 12/21/2016 TECHNIQUE: PA and lateral views of the chest FINDINGS: Cardiomediastinal and hilar silhouettes are within normal limits. No pneumothorax, pleural effusion, focal airspace consolidation or overt pulmonary edema. The bones of the chest appear grossly intact. IMPRESSION: No acute process. The above report was generated using voice recognition software. It may contain grammatical, syntax or spelling errors. Electronically signed by: Maurice Barrera M.D. 07/06/2018 10:55 PM Dictated Date/Time: 07/06/2018 10:55 PM Laboratory Results 07/06/18 21:20 Red Blood Count 4.31, Mean Corpuscular Volume 90.3, Mean Corpuscular Hemoglobin 30.6, Mean Corpuscular Hemoglobin Concent 33.9, Mean Platelet Volume 10.0, Neutrophils (%) (Auto) 44.1, Lymphocytes (%) (Auto) 43.4, Monocytes (%) (Auto) 10.5, Eosinophils (%) (Auto) 1.6, Basophils (%) (Auto) 0.3, Neutrophils # (Auto ) 3.32, Lymphocytes # (Auto) 3.26, Monocytes # (Auto) 0.79, Eosinophils # (Auto ) 0.12, Basophils # (Auto) 0.02 07/06/18 21:20 Test 07/06/18 21:20 White Blood Count 7.52 K/uL (4.8-10.8) Red Blood Count 4.31 M/uL (4.2-5.4) Hemoglobin 13.2 g/dL (12.0-16.0) Hematocrit 38.9 % (37-47) Mean Corpuscular Volume 90.3 fL (80-100) Mean Corpuscular Hemoglobin 30.6 pg (25-34) Mean Corpuscular Hemoglobin Concent 33.9 g/dl (32-36) Platelet Count 236 K/uL (130-400) Mean Platelet Volume 10.0 fL (7.4-10.4) Neutrophils (%) (Auto) 44.1 % Lymphocytes (%) (Auto) 43.4 % Monocytes (%) (Auto) 10.5 % Eosinophils (%) (Auto) 1.6 % Basophils (%) (Auto) 0.3 % Neutrophils # (Auto) 3.32 K/uL (1.4-6.5) Lymphocytes # (Auto) 3.26 K/uL (1.2-3.4) Monocytes # (Auto) 0.79 K/uL (0.11-0.59) Eosinophils # (Auto) 0.12 K/uL (0-0.5) Basophils # (Auto) 0.02 K/uL (0-0.2) RDW Standard Deviation 40.2 fL (36.4-46.3) RDW Coefficient of Variation 12.1 % (11.5-14.5) Immature Granulocyte % (Auto) 0.1 % Immature Granulocyte # (Auto) 0.01 K/uL (0.00-0.02) D-Dimer 350 ug/L FEU (0-500) Anion Gap 8.0 mmol/L (3-11) Est Creatinine Clear Calc Drug Dose 134.7 ml/min Estimated GFR () 136.0 Estimated GFR (Non- 117.4 BUN/Creatinine Ratio 17.0 (10-20) Calcium Level 8.3 mg/dl (8.5-10.1) Troponin I < 0.015 ng/ml (0-0.045) Laboratory results reviewed by me ECG Per My Interpretation Indication: SOB/dyspnea Rate (beats per minute): 75 Rhythm: sinus rhythm Findings: other (ID, QRS, and QT-c intervals are within normal limits) ED Course 2052: The patient was evaluated in room B11B. A complete history and physical exam was performed. 5: I reevaluated the patient at this time. Her vitals are stable. Her labs and imaging are within normal limits. Preliminary tread of the ultrasound of the left lower extremity per the tech showed no acute DVT. The patient will be discharged and follow up with her PCP. DISCHARGE - Plan of care discussed with patient and questions answered. The patient was given both verbal and printed discharge instructions. The patient verbalized understanding and ability to comply. The patient is to seek outpatient follow up as noted in the discharge instructions. The patient verbalized understanding and ability to comply. The patient is discharged in stable condition. The patient was instructed to return for worsening symptoms. Medical Decision Her vitals are stable. Her labs and imaging are within normal limits. Preliminary tread of the ultrasound of the left lower extremity per the tech showed no acute DVT. The patient will be discharged and follow up with her PCP. DISCHARGE - Plan of care discussed with patient and questions answered. The patient was given both verbal and printed discharge instructions. The patient verbalized understanding and ability to comply. The patient is to seek outpatient follow up as noted in the discharge instructions. The patient verbalized understanding and ability to comply. The patient is discharged in stable condition. The patient was instructed to return for worsening symptoms. Medication Reconcilliation Current Medication List: was personally reviewed by me Blood Pressure Screening Patient's blood pressure: Normal blood pressure Blood pressure disposition: Did not require urgent referral Impression Primary Impression: Superficial bruising of lower leg Scribe Attestation The scribe's documentation has been prepared under my direction and personally reviewed by me in its entirety. I confirm that the note above accurately reflects all work, treatment, procedures, and medical decision making performed by me. The chart was completed utilizing [employer] Speech voice recognition software. Grammatical errors, random word insertions, pronoun errors, and incomplete sentences are an occasional consequence of this system due to software limitations, ambient noise, and hardware issues. Any formal questions or concerns about the content, text, or information contained within the body of this dictation should be directly addressed to the physician for clarification. Departure Information Dispostion Home / Self-Care Referrals Faith Dixon M.D. (PCP) Forms HOME CARE DOCUMENTATION FORM, IMPORTANT VISIT INFORMATION Patient Instructions [facility] Additional Instructions Return to the emergency department if you develop fever greater 100.4, chest pain, difficulty breathing, or cough up blood. Problem Qualifiers Primary Impression: Superficial bruising of lower leg Encounter type: initial encounter Laterality: left Qualified Codes: S80.12XA - Contusion of left lower leg, initial encounter
--- NOTE | 2018-07-06 22:57 | DIAGNOSTIC IMAGING REPORT ---
CHEST 2 VIEWS ROUTINE HISTORY: 28 years-old Female sob acute shortness of breath COMPARISON: Chest radiograph 12/21/2016 TECHNIQUE: PA and lateral views of the chest FINDINGS: Cardiomediastinal and hilar silhouettes are within normal limits. No pneumothorax, pleural effusion, focal airspace consolidation or overt pulmonary edema. The bones of the chest appear grossly intact. IMPRESSION: No acute process. The above report was generated using voice recognition software. It may contain grammatical, syntax or spelling errors. Electronically signed by: Maurice Barrera M.D. 07/06/2018 10:55 PM Dictated Date/Time: 07/06/2018 10:55 PM
[2018-07-06 23:20] VITALS: BP 114/78; PULSE 76; O2SAT 98
--- NOTE | 2018-07-07 09:42 | DIAGNOSTIC IMAGING REPORT ---
LEFT LOWER EXTREMITY VENOUS DOPPLER HISTORY: Left leg pain. COMPARISON STUDY: None. FINDINGS: There is normal compressibility, flow, and augmentation within the left lower extremity deep venous system. IMPRESSION: No DVT within the left lower extremity. Electronically signed by: Alcides Batista M.D. 07/07/2018 9:41 AM Dictated Date/Time: 07/07/2018 9:41 AM
== END 2018-07-06 23:20 | disposition home or self-care (01) ==
LOC: C.EDB 20:42
DX: S80.12XA Contusion of left lower leg, initial encounter (principal); X58.XXXA Exposure to other specified factors, initial encounter; Z88.0 Allergy status to penicillin